=== PATIENT | female | born 1975 | race African-American/Black ===

== ENCOUNTER 2021-07-23 22:50 | Emergency (ER) | payer MEDICARE ==
[~2021-07-23] VITALS: Ht 154.9 cm; Wt 89.0 kg
[2021-07-23] MEDS ORDERED: HYDR-4514 PO (23:04)
[2021-07-23] MEDS ORDERED: LISI-898 PO (23:05)
[2021-07-24] MEDS ORDERED: KETOROLAC TROMETHAMINE 10 MG TAB PO ONE (00:05)
--- NOTE | 2021-07-24 00:38 | REPVR ---
PROCEDURE INFORMATION: Exam: XR Left Knee Exam date and time: 07/23/2021 11:53 PM Age: 45 years old Clinical indication: Pain; Knee; Left; Additional info: Hit on door TECHNIQUE: Imaging protocol: XR Left knee. Views: 4 or more views. COMPARISON: No relevant prior studies available. FINDINGS: Bones/joints: There is a left knee prosthesis. The prosthesis is intact with no evidence of fracture or loosening. There is no fracture of the adjacent osseous structures. There is no dislocation. Soft tissues: Normal. IMPRESSION: 1. Intact left knee prosthesis. 2. No fracture Electronically signed by: Romulo Donato On 07/24/2021 00:37:21 AM
[2021-07-24 01:09] VITALS: BP 153/96
== END 2021-07-24 01:12 | disposition home or self-care (01) ==
LOC: M ED 22:50
DX: M25.562 Pain in left knee (principal); W22.8XXA Striking against or struck by other objects, initial encounter; Y92.9 Unspecified place or not applicable; Y93.9 Activity, unspecified; Y99.9 Unspecified external cause status; Z96.652 Presence of left artificial knee joint; I10 Essential (primary) hypertension

== ENCOUNTER 2021-11-29 12:21 | Emergency (ER) | payer MEDICARE ==
[~2021-11-29] VITALS: Ht 154.9 cm; Wt 85.9 kg
[2021-11-29 12:21] VITALS: BP 136/90
[~2021-11-29 12:21] MED LIST: HYDR-4514 PO; LISI5TAB11 PO
[2021-11-29] MEDS ORDERED: HYDR-3490 PO (12:39)
[2021-11-29] MEDS ORDERED: HYDR-3713 PO (16:01)
== END 2021-11-29 16:19 | disposition home or self-care (01) ==
LOC: M ED 12:21
DX: M25.562 Pain in left knee (principal); W18.2XXA Fall in (into) shower or empty bathtub, initial encounter; I10 Essential (primary) hypertension; Y92.009 Unspecified place in unspecified non-institutional (private) residence as the place of occurrence of the external cause; Y93.E1 Activity, personal bathing and showering; Y99.9 Unspecified external cause status; Z96.653 Presence of artificial knee joint, bilateral; Z79.899 Other long term (current) drug therapy